=== PATIENT | male | born 1970 | race Two or more races ===

== ENCOUNTER 2020-01-05 06:17 | Inpatient (IN) | payer OTHER ==
--- NOTE | 2020-01-05 07:29 | PDOC ---
Attending Attestation - Resident Resident Name: Jorge Blanca - ED Attending Attestation I have performed the following: I have examined & evaluated the patient, The case was reviewed & discussed with the resident, I agree w/resident's findings & plan, Exceptions are as noted - HPI HPI: 01/05/20 07:39 49YOM h/o EtOH use disorder, history of withdrawal seizures, who drank a whole bottle of whiskey last night and shortly thereafter became concerned because he felt like his blood pressure was high. Elaborates that he felt rapid palpitations which have persisted since that time. Denies having taken his BP measurement during this time. He present alert, oriented, and able to give his full history. Denies additional substance use. Notes he feels like he is trembling and feels generally unwell but otherwise denies focal pain. - Physicial Exam PE: 01/05/20 07:29 GENERAL: well-appearing, A/Ox4, no distress, answers questions appropriately, does speak Yoruba but prefers Uzbek HEENT: PERRLA, EOMI, moist mucous membranes NECK/BACK: no midline ttp, no spinal step-off or deformity, no hematoma, full ROM, neck supple CARDIOVASCULAR: rapid regular rate, no MGR, strong peripheral pulses, capillary refill 3 seconds, extremities wwp, no edema LUNGS/RESPIRATORY: no respiratory distress, CTAB GI/ABDOMEN: symmetric [id number], normoactive BS, soft, no ttp, no midline pulsatile masses : no CVA tenderness MSK/EXTREMITIES: no muscle atrophy, no acute deformity SKIN: warm and dry, no pallor, no jaundice, no rash, no pathologic-appearing bruising, no skin breakdown, no cuts, no lesions NEUROLOGICAL: GCS 15, CN II-XII grossly intact, 5/5 strength proximally and distally, no facial droop, +asterixis, tremulous at rest, +tongue fasciculations - Medical Decision Making 49YOM with h/o heavy EtOH use who p/w stated alcohol withdrawal, also with fever. Initial Vital Signs Temp Pulse Resp BP Pulse Ox 98.8 F 120 H 18 127/95 96 01/05/20 06:28 01/05/20 06:28 01/05/20 06:28 01/05/20 06:28 01/05/20 06:28 Most likely EtOH withdrawal (w/ concern for seizure and DT), less likely hepatic encephalopathy. Possible metabolic derangement as well, possible infection (e.g. PNA or UTI). Provider Orders Category Date Time Status ELECTROCARDIOGRAM [CARD] Stat Cardiology 01/05/20 07:27 Completed Cardiac Monitoring Continuous Care 01/05/20 07:43 Completed EKG needed NOW Care 01/05/20 07:27 Completed Isolation Precautions As directed Care 01/05/20 10:07 Completed CARDIAC PROFILE ([facility]) Stat Lab 01/05/20 07:30 Completed CBC WITH DIFFERENTIAL Stat Lab 01/05/20 07:30 Completed CK INDEX Stat Lab 01/05/20 07:30 Completed CK MB Stat Lab 01/05/20 07:30 Completed COMP METABOLIC PANEL Stat Lab 01/05/20 07:30 Completed COVID-19 Stat Lab 01/05/20 12:00 Completed FREE T4 Stat Lab 01/05/20 07:30 Completed TSH [THYROID STIMULATING HORMONE] Stat Lab 01/05/20 07:30 Completed Chlordiazepoxide [Librium -] Medication 01/05/20 08:09 Discontinued 50 mg .ROUTE .STK-MED ONE Chlordiazepoxide [Librium -] Medication 01/05/20 08:08 Discontinued 50 mg PO ONCE ONE Diazepam Injection [Valium Injection -] Medication 01/05/20 09:54 Discontinued 10 mg .ROUTE .STK-MED ONE Diazepam Injection [Valium Injection -] Medication 01/05/20 09:54 Discontinued 10 mg IVPUSH ONCE ONE Diazepam [Valium -] Medication 01/05/20 09:48 Discontinued 10 mg PO ONCE ONE Folic Acid Injection - 1 mg Medication 01/05/20 07:44 Discontinued Thiamine HCl [Vitamin B1 Injection -] 100 mg Multivit Injection Adult [Infuvite Adult -] 10 ml Sodium Chloride [Normal Saline -] 988.8 ml IVPB ONCE LORazepam [Ativan Injection -] Medication 01/05/20 08:09 Discontinued 2 mg .ROUTE .STK-MED ONE Lactated Ringers Solution Medication 01/05/20 07:44 Discontinued 1,000 ml IV ONCE ONE Lorazepam Injection [Ativan Injection -] Medication 01/05/20 08:08 Discontinued 2 mg IVPUSH ONCE ONE IV Insert NOW Phy Order 01/05/20 07:45 Completed Medications Discontinued Medications Generic Name Dose Route Start Last Admin Trade Name Freq PRN Reason Stop Dose Admin Chlordiazepoxide HCl 50 mg 01/05/20 08:08 01/05/20 08:28 Librium - PO 01/05/20 08:09 50 mg ONCE ONE Administration Chlordiazepoxide HCl Confirm 01/05/20 08:09 Librium - Administered 01/05/20 08:10 Dose 50 mg .ROUTE .STK-MED ONE Chlordiazepoxide HCl 50 mg 01/05/20 18:00 01/07/20 06:24 Librium - PO 50 mg Q6HPO NOHELIA Administration Diazepam 10 mg 01/05/20 09:48 01/05/20 09:55 Valium - PO 01/05/20 09:49 10 mg ONCE ONE Administration Diazepam 10 mg 01/05/20 09:54 01/05/20 09:56 Valium Injection - IVPUSH 01/05/20 09:55 10 mg ONCE ONE Administration Diazepam Confirm 01/05/20 09:54 Valium Injection - Administered 01/05/20 09:55 Dose 10 mg .ROUTE .STK-MED ONE Folic Acid 1 mg 01/05/20 13:30 01/07/20 09:39 Folic Acid - PO 1 mg DAILY NOHELIA Administration Folic Acid Confirm 01/05/20 14:25 Folic Acid - Administered 01/05/20 14:26 Dose 1 mg .ROUTE .STK-MED ONE Heparin Sodium (Porcine) 5,000 unit 01/05/20 22:00 01/07/20 09:39 Heparin - SQ 5,000 unit BID NOHELIA Administration Folic Acid 1 mg/ Thiamine HCl 1,000 mls @ 125 mls/hr 01/05/20 07:44 01/05/20 08:28 100 mg/ Multivitamins/Minerals IVPB 01/05/20 15:43 125 mls/hr 10 ml/ Sodium Chloride ONCE ONE Administration Potassium Chloride/Dextrose/Sod Cl 20 meq in 1,000 mls @ 125 mls/hr 01/05/20 13:30 01/06/20 11:27 D5-1/2ns+20 Meq Kcl - IV 125 mls/hr ASDIR NOHELIA Administration Folic Acid 1 mg/ Thiamine HCl 1,000 mls @ 125 mls/hr 01/06/20 13:30 01/06/20 17:28 100 mg/ Multivitamins/Minerals IVPB 01/06/20 21:29 125 mls/hr 10 ml/ Sodium Chloride ONCE ONE Administration Insulin Aspart 0 vial 01/05/20 16:30 01/05/20 17:27 Novolog Vial Sliding Scale - SQ Not Given ACHS [facility] Protocol Insulin Aspart 1 vial 01/05/20 19:25 01/07/20 06:26 Novolog Vial Sliding Scale - SQ Not Given ACHS [facility] Protocol Lactated Ringer's 1,000 ml 01/05/20 07:44 01/05/20 08:27 Lactated Ringers Solution IV 01/05/20 07:45 1,000 ml ONCE ONE Administration Lactated Ringer's 1,000 ml 01/05/20 10:44 01/05/20 10:48 Lactated Ringers Solution IV 01/05/20 10:45 1,000 ml ONCE ONE Administration Lorazepam 2 mg 01/05/20 08:08 01/05/20 08:28 Ativan Injection - IVPUSH 01/05/20 08:09 2 mg ONCE ONE Administration Lorazepam Confirm 01/05/20 08:09 Ativan Injection - Administered 01/05/20 08:10 Dose 2 mg .ROUTE .STK-MED ONE Multivitamins/Minerals 10 ml 01/05/20 13:30 01/06/20 20:13 Infuvite Adult - IV Not Given DAILY [facility] Patient Own Medication Confirm 01/06/20 15:57 Pt Own Med Drawer Administered 01/06/20 15:58 Dose 1 ea .ROUTE .STK-MED ONE Thiamine HCl 200 mg 01/05/20 13:30 01/06/20 10:19 Vitamin B1 Injection - IVPB 200 mg DAILY NOHELIA Administration Thiamine HCl Confirm 01/05/20 14:24 Vitamin B1 - Administered 01/05/20 14:25 Dose 200 mg .ROUTE .STK-MED ONE Thiamine HCl 100 mg 01/06/20 22:00 01/07/20 09:39 Vitamin B1 - PO 100 mg BID NOHELIA Administration Lab Results WBC 3.3 K/mm3 (4.0-10.0) L 01/05/20 07:30 RBC 3.50 M/mm3 (4.00-5.60) L 01/05/20 07:30 Hgb 12.1 GM/dL (11.7-16.9) 01/05/20 07:30 Hct 35.3 % (35.4-49) L 01/05/20 07:30 MCV 100.8 fl (80-96) H 01/05/20 07:30 MCH 34.6 pg (25.7-33.7) H 01/05/20 07:30 MCHC 34.3 g/dl (32.0-35.9) 01/05/20 07:30 RDW 14.8 % (11.9-15.9) 01/05/20 07:30 Plt Count 190 K/MM3 (134-434) 01/05/20 07:30 MPV 7.0 fl (7.5-11.1) L 01/05/20 07:30 Absolute Neuts (auto) 1.9 K/mm3 (1.5-8.0) 01/05/20 07:30 Neutrophils % 58.3 % (42.8-82.8) 01/05/20 07:30 Lymphocytes % 34.9 % (8-40) 01/05/20 07:30 Monocytes % 6.1 % (3.8-10.2) 01/05/20 07:30 Eosinophils % 0.1 % (0-4.5) 01/05/20 07:30 Basophils % 0.6 % (0-2.0) 01/05/20 07:30 Nucleated RBC % 0 % (0-0) 01/05/20 07:30 Sodium 139 mmol/L (136-145) 01/05/20 07:30 Potassium 3.7 mmol/L (3.5-5.1) 01/05/20 07:30 Chloride 105 mmol/L (98-107) 01/05/20 07:30 Carbon Dioxide 25 mmol/L (21-32) 01/05/20 07:30 Anion Gap 9 MMOL/L (8-16) 01/05/20 07:30 BUN 7.8 mg/dL (7-18) 01/05/20 07:30 Creatinine 0.7 mg/dL (0.55-1.3) 01/05/20 07:30 Est GFR (CKD-EPI)AfAm 126.64 01/05/20 07:30 Est GFR (CKD-EPI)NonAf 109.27 01/05/20 07:30 Random Glucose 122 mg/dL (74-106) H 01/05/20 07:30 Calcium 8.3 mg/dL (8.5-10.1) L 01/05/20 07:30 Total Bilirubin 0.4 mg/dL (0.2-1) 01/05/20 07:30 AST 74 U/L (15-37) H 01/05/20 07:30 ALT 37 U/L (13-61) 01/05/20 07:30 Alkaline Phosphatase 104 U/L (45-117) 01/05/20 07:30 Creatine Kinase 439 U/L (26-308) H 01/05/20 07:30 Creatine Kinase Index 0.3 % (0.0-5.0) 01/05/20 07:30 CK-MB (CK-2) 1.6 ng/mL (0.5-3.6) 01/05/20 07: Troponin I < 0.02 ng/ml (0.00-0.05) 01/05/20 07:30 Total Protein 8.2 g/dl (6.4-8.2) 01/05/20 07:30 Albumin 3.8 g/dl (3.4-5.0) 01/05/20 07:30 TSH 4.03 uIU/ml (0.358-3.74) H 01/05/20 07:30 Free T4 0.65 ng/dl (0.76-1.16) L 01/05/20 07:30 01/05/20 09:40 HR at this time is 108 after Librium and Ativan. Patient remains tremulous and with tongue fasciculations, given Valium Patient continues to have tremors and fasciculations despite medications. There is concern for deterioration to EtOH withdrawal seizure or DT, also concern for patient's fever. He requires close observation and treatment, admission procedures carried out by resident. Heart Score/ECG Review #1 Sinus tachycardia, rate 119, normal axis, nonspecific ST-T changes likely secondary to rate. Discharge - Discharge Information Problems reviewed: Yes Clinical Impression/Diagnosis: Alcohol withdrawal Qualifiers: Complication of substance-induced condition: uncomplicated Qualified Code(s): F10.230 - Alcohol dependence with withdrawal, uncomplicated Condition: Guarded - Admission Yes - Follow up/Referral - Patient Discharge Instructions - Post Discharge Activity
[2020-01-05] MEDS ORDERED: FOLIC ACID INJECTION - 1 MG, THIAMINE HCL 100 MG, MULTIVIT INJECTION ADULT 10 ML in SOD... IVPB ONE (07:44)
[2020-01-05] MEDS ORDERED: LACTATED RINGERS SOLUTION 1000 ML INFUS.BAG IV ONE ×2 (07:44→10:44)
--- NOTE | 2020-01-05 07:47 | PDOC ---
History of Present Illness - General Chief Complaint: Blood Pressure Problem Stated Complaint: BLOOD PRESSURE PROBLEM Time Seen by Provider: 01/05/20 07:17 History Source: Patient Exam Limitations: No Limitations - History of Present Illness Initial Comments: 01/05/20 07:46 49yM w PMHx EtOH abuse presenting w concern for high BP and intermittent palpitations after drinking 1 bottle of whisky last night. Drinks 1 bottle of hard liquor most days, past hx withdrawals w seizures. Denies fever, cough, n/v, chest/ABD pain, urinary/bowel mvmt changes. Past History - Medical History Allergies/Adverse Reactions: Allergies Allergy/AdvReac Type Severity Reaction Status Date / Time No Known Allergies Allergy Verified 01/05/20 06:28 Home Medications: Ambulatory Orders NK [No Known Home Medication] 01/05/20 - Psycho-Social/Smoking History Smoking History: Never smoked Have you smoked in the past 12 months: No Information on smoking cessation initiated: No - Substance Abuse Hx (Audit-C & DAST Scrn) How often the patient has a drink containing alcohol: Never Score: In Men: 4 or > Positive; In Women: 3 or > Positive: 0 Screen Result (Pos requires Nsg. Audit-10AR): Negative In the last yr the pt used illegal drug/Rx for NonMed reason: No Score: Yes response is considered Positive: 0 Screen Result (Positive result requires Nsg. DAST-10): Negative Review of Systems - Review of Systems Constitutional: No: Chills, Fever HEENTM: No: Eye Pain, Nose Pain Respiratory: No: Cough, Shortness of Breath Cardiac (ROS): Yes: Palpitations. No: Chest Pain ABD/GI: No: Constipated, Diarrhea : No: Burning, Dysuria Musculoskeletal: No: Back Pain, Joint Pain Integumentary: No: Bruising, Flushing Neurological: No: Headache, Seizure Psychiatric: No: Anxiety, Depression Endocrine: No: Intolerance to Cold, Intolerance to Heat Hematologic/Lymphatic: No: Anemia, Blood Clots *Physical Exam - Vital Signs Last Vital Signs Temp Pulse Resp BP Pulse Ox 98.8 F 120 H 18 127/95 96 01/05/20 06:28 01/05/20 06:28 01/05/20 06:28 01/05/20 06:28 01/05/20 06:28 - Physical Exam General Appearance: Yes: Nourished, Appropriately Dressed, Mild Distress HEENT: positive: EOMI, BARI, Normal Voice, Hearing Grossly Normal, Other (tongue fasciculations). negative: Scleral Icterus (R), Scleral Icterus (L) Respiratory/Chest: positive: Lungs Clear, Normal Breath Sounds. negative: Chest Tender, Respiratory Distress Cardiovascular: positive: Regular Rhythm, S1, S2, Tachycardia. negative: Edema, Murmur Gastrointestinal/Abdominal: positive: Normal Bowel Sounds, Flat, Soft. negative: Tender, Organomegaly Extremity: positive: Delayed Capillary Refill Integumentary: positive: Normal Color, Dry, Warm Neurologic: positive: Fully Oriented, Alert, Normal Mood/Affect, Normal Response, Responsive ED Treatment Course - LABORATORY CBC & Chemistry Diagram: 01/05/20 07:30 01/05/20 07:30 Medical Decision Making - Medical Decision Making 01/05/20 10:07 EKG - sinus tachycardia, HR 119, QTc 433, no ST changes WBC 3.3, T4 0.65 --- 49yM w PMHx EtOH abuse presenting w concern for high BP and intermittent palpitations after drinking 1 bottle of whisky last night. Likely d/t etoh withdrawal. Also has mild hypothyroidism, free T4 0.65. Given 2L LR, banana bag, 2 ativan, 50 librium, 10 valium. Repeat HR 97 after meds given Admit m/s Annabi for etoh withdrawal in setting of past hx of seizures and concern for progression to delirium tremes Discharge - Discharge Information Problems reviewed: Yes Clinical Impression/Diagnosis: Alcohol withdrawal Qualifiers: Complication of substance-induced condition: uncomplicated Qualified Code(s): F10.230 - Alcohol dependence with withdrawal, uncomplicated Condition: Improved - Follow up/Referral Referrals: Efrain Tolbert MD [Primary Care Provider] - - Patient Discharge Instructions - Post Discharge Activity
[2020-01-05] MEDS ORDERED: chlordiazePOXIDE HCL 25 MG CAPSULE PO ONE (08:08)
[2020-01-05] MEDS ORDERED: LORazepam 2 MG/ML SDV VIAL ONE (08:09)
[2020-01-05] MEDS ORDERED: chlordiazePOXIDE HCL 25 MG CAPSULE ONE (08:09)
[2020-01-05 08:30] LABS: BASO % 0.6 % (0-2.0); EOS % 0.1 % (0-4.5); HEMATOCRIT 35.3 % (35.4-49); HEMOGLOBIN 12.1 GM/dL (11.7-16.9); LYMPH % 34.9 % (8-40); MCH 34.6 pg (25.7-33.7); MCHC 34.3 g/dl (32.0-35.9); MEAN CELL VOLUME 100.8 fl (80-96); MONO % 6.1 % (3.8-10.2); NEUT % 58.3 % (42.8-82.8); PLATELET COUNT 190 K/MM3 (134-434); RDW 14.8 % (11.9-15.9); WHITE BLOOD COUNT 3.3 K/mm3 (4.0-10.0)
[2020-01-05 09:11] LABS: ALBUMIN 3.8 g/dl (3.4-5.0); ALK PHOS 104 U/L (45-117); ANION GAP 9 MMOL/L (8-16); BILIRUBIN,TOTAL 0.4 mg/dL (0.2-1); BLOOD UREA NITROGEN 7.8 mg/dL (7-18); CALCIUM 8.3 mg/dL (8.5-10.1); CHLORIDE 105 mmol/L (98-107); CO2 25 mmol/L (21-32); CREATININE 0.7 mg/dL (0.55-1.3); GLUCOSE,RANDOM 122 mg/dL (74-106); POTASSIUM 3.7 mmol/L (3.5-5.1); SGOT/AST 74 U/L (15-37); SGPT/ALT 37 U/L (13-61); SODIUM 139 mmol/L (136-145); TOT PROT 8.2 g/dl (6.4-8.2)
[2020-01-05] MEDS ORDERED: diazePAM 5 MG TABLET PO ONE (09:48)
[2020-01-05] MEDS ORDERED: diazePAM CARPU-JECT 10 MG/2 ML DISP.SYRIN ONE (09:54)
[2020-01-05] MEDS ORDERED: diazePAM CARPU-JECT 10 MG/2 ML DISP.SYRIN IVPUSH ONE (09:54)
--- NOTE | 2020-01-05 12:32 | EKG ---
Test Reason : Blood Pressure : / mmHG Vent. Rate : 117 BPM Atrial Rate : 117 BPM P-R Int : 148 ms QRS Dur : 090 ms QT Int : 316 ms P-R-T Axes : 023 030 036 degrees QTc Int : 440 ms SINUS TACHYCARDIA NONSPECIFIC T WAVE ABNORMALITY ABNORMAL ECG NO PREVIOUS ECGS AVAILABLE Confirmed by FABRICIO GROVER MD ([id number]) on 01/05/2020 12:31:44 PM Referred By: Confirmed By:FABRICIO GROVER MD
[2020-01-05] MEDS ORDERED: THIAMINE HCL 100 MG TABLET (FP) ONE (14:24)
[2020-01-05] MEDS ORDERED: FOLIC ACID 1 MG TABLET (FP) ONE (14:25)
[2020-01-05] MEDS: FOLIC ACID 1 MG TABLET (FP) PO SCH (14:32)
[2020-01-05] MEDS: THIAMINE HCL 200 MG/2 ML VIAL IVPB SCH (14:32)
[2020-01-05] MEDS: D5-1/2NS+20 MEQ KCL - 20 MEQ/1,000 ML INFUS.BAG IV SCH (15:29)
[2020-01-05] MEDS ORDERED: INSULIN SLIDING SCALE (NOVOLOG) 1 VIAL SQ SCH (16:30)
[2020-01-05] MEDS: chlordiazePOXIDE HCL 25 MG CAPSULE PO SCH ×2 (18:12→23:51)
--- NOTE | 2020-01-05 19:33 | CONSULT ---
Consult Detox [facility] Reason for Current Admission/Consult: Alcohol withdrawal syndrome Referred by:: Nicolas Robertson - History History of Present Illness: 49YOM h/o EtOH use disorder, history of withdrawal seizures, who drank a whole bottle of whiskey last night and shortly thereafter became concerned because he felt like his blood pressure was high. Elaborates that he felt rapid palpitations which have persisted since that time. Denies having taken his BP measurement during this time. He present alert, oriented, and able to give his full history. Denies additional substance use. Notes he feels like he is trembling and feels generally unwell but otherwise denies focal pain. - History Source History Provided By: Medical Record Limitations to Obtaining History: No Limitations - Alcohol/Substance Use Hx Alcohol Use: Yes Hx Substance Use: No Hx Substance Use Treatment: No - Current Drug/Alcohol Use Alcohol Route: Oral Frequency: Daily Amount used: 1 bottle of hard liquor Age of first use: 18 Date of Last Use: 01/04/20 Assessment Plan - Plan Plan: Alcohol Withdrawal Syndrome: Patient has a history of alcohol use. However, it isn't clear that he has been drinking daily and is dependent. Assess patient for amount and duration and if there have been adverse effects of alcohol use; e.g., blackouts, seizures upon withdrawing. If patient is amenable to detox, then he can be referred to [facility] for detox if medically stable and cleared. Continue Ativan and Librium on prn basis. Assess a CIWA overnight. If he is still in withdrawals, then start Librium detox protocol. Please do not hesitate to confer with detox attending distribution district supervisor. Thanks for the consult. Dr. Durbin - Medication Detox Regimen/Protocol: Librium
[2020-01-05 19:40] VITALS: BMI 25.8
[2020-01-05] MEDS: INSULIN SLIDING SCALE (NOVOLOG) 1 VIAL SQ SCH (21:42)
[2020-01-05] MEDS: HEPARIN NA (PORCINE) 5,000 UNITS/ML 1ML VIAL SQ SCH (21:43)
[2020-01-06] MEDS: D5-1/2NS+20 MEQ KCL - 20 MEQ/1,000 ML INFUS.BAG IV SCH ×2 (01:03→11:27)
[2020-01-06] MEDS: INSULIN SLIDING SCALE (NOVOLOG) 1 VIAL SQ SCH ×4 (06:24→21:45)
[2020-01-06] MEDS: chlordiazePOXIDE HCL 25 MG CAPSULE PO SCH ×3 (06:24→17:28)
[2020-01-06 09:39] LABS: BASO % 0.6 % (0-2.0); HEMATOCRIT 33.9 % (35.4-49); HEMOGLOBIN 11.7 GM/dL (11.7-16.9); LYMPH % 41.3 % (8-40); MCH 34.8 pg (25.7-33.7); MCHC 34.6 g/dl (32.0-35.9); MEAN CELL VOLUME 100.5 fl (80-96); MEAN PLT VOLUME 7.5 fl (7.5-11.1); NEUT % 52.1 % (42.8-82.8); PLATELET COUNT 164 K/MM3 (134-434); RBC 3.37 M/mm3 (4.00-5.60); RDW 14.4 % (11.9-15.9); WHITE BLOOD COUNT 3.6 K/mm3 (4.0-10.0)
[2020-01-06 10:16] LABS: POTASSIUM 3.6 mmol/L (3.5-5.1)
[2020-01-06] MEDS: FOLIC ACID 1 MG TABLET (FP) PO SCH (10:19)
[2020-01-06] MEDS: THIAMINE HCL 200 MG/2 ML VIAL IVPB SCH (10:19)
[2020-01-06] MEDS: HEPARIN NA (PORCINE) 5,000 UNITS/ML 1ML VIAL SQ SCH ×2 (10:20→21:44)
[2020-01-06 10:40] LABS: ALBUMIN 3.1 g/dl (3.4-5.0); BILIRUBIN,TOTAL 0.9 mg/dL (0.2-1); CALCIUM 7.9 mg/dL (8.5-10.1); CREATININE 0.7 mg/dL (0.55-1.3); MAGNESIUM 1.6 mg/dL (1.8-2.4); TOT PROT 6.8 g/dl (6.4-8.2)
[2020-01-06 10:49] LABS: BLOOD UREA NITROGEN 2.8 mg/dL (7-18)
--- NOTE | 2020-01-06 12:56 | PN ---
Progress Note, Physician Chief Complaint: EVENTS AND NOTES REVIEWED ASLEEP NO ACUTE CHANGES OVERNIGHT - Current Medication List Current Medications: Active Medications Chlordiazepoxide HCl (Librium -) 50 mg PO Q6HPO [facility] Last Admin: 01/06/20 06:24 Dose: 50 mg Documented by: Folic Acid (Folic Acid -) 1 mg PO DAILY [facility] Last Admin: 01/06/20 10:19 Dose: 1 mg Documented by: Heparin Sodium (Porcine) (Heparin -) 5,000 unit SQ BID [facility] Last Admin: 01/06/20 10:20 Dose: 5,000 unit Documented by: Potassium Chloride/Dextrose/Sod Cl (D5-1/2ns+20 Meq Kcl -) 20 meq in 1,000 mls @ 125 mls/hr IV ASDIR [facility] Last Admin: 01/06/20 11:27 Dose: 125 mls/hr Documented by: Insulin Aspart (Novolog Vial Sliding Scale -) 1 vial SQ ACHS [facility]; Protocol Last Admin: 01/06/20 11:31 Dose: Not Given Documented by: Multivitamins/Minerals (Infuvite Adult -) 10 ml IV DAILY [facility] Thiamine HCl (Vitamin B1 Injection -) 200 mg IVPB DAILY [facility] Last Admin: 01/06/20 10:19 Dose: 200 mg Documented by: - Objective Vital Signs: Vital Signs Temperature 98.3 F 01/06/20 10:44 Pulse Rate 92 H 01/06/20 10:44 Respiratory Rate 16 01/06/20 10:44 Blood Pressure 131/84 01/06/20 10:44 O2 Sat by Pulse Oximetry (%) 98 01/06/20 10:44 Constitutional: Yes: Mild Distress Cardiovascular: Yes: Regular Rate and Rhythm Respiratory: Yes: WNL Genitourinary: Yes: WNL Musculoskeletal: Yes: WNL Edema: No Neurological: Yes: Confusion Labs: CBC, BMP 01/06/20 08:20 01/06/20 08:20 Problem List - Problems (1) Alcohol withdrawal Code(s): F10.239 - ALCOHOL DEPENDENCE WITH WITHDRAWAL, UNSPECIFIED Qualifiers: Complication of substance-induced condition: uncomplicated Qualified Code(s): F10.230 - Alcohol dependence with withdrawal, uncomplicated Assessment/Plan ETOH WITHDRAWEL PROTOCOL IV MVI THIAMINE/FOLIC ACID/BANANA BAG LIBRIUM PROTOCOL DETOX [facility] DVT PROPHYLAXIS
--- NOTE | 2020-01-06 12:58 | HP ---
Admitting History and Physical - Primary Care Physician PCP: Kimberly Dela Cruz - Admission Chief Complaint: ETOH WITHDRAWEL History of Present Illness: 49YOM h/o EtOH use disorder, history of withdrawal seizures, who drank a whole bottle of whiskey last night and shortly thereafter became concerned because he felt like his blood pressure was high. Elaborates that he felt rapid palpitations which have persisted since that time. Denies having taken his BP me asurement during this time. He present alert, oriented, and able to give his full history. Denies additional substance use. Notes he feels like he is trembling and feels generally unwell but otherwise denies focal pain. - Advance Directives Advance Directives: Yes: Health Care Proxy - Smoking History Smoking history: Never smoked Have you smoked in the past 12 months: No - Alcohol/Substance Use Hx Alcohol Use: Yes Home Medications - Allergies Allergies/Adverse Reactions: Allergies Allergy/AdvReac Type Severity Reaction Status Date / Time No Known Allergies Allergy Verified 01/05/20 06:28 - Home Medications Home Medications: Ambulatory Orders NK [No Known Home Medication] 01/05/20 Review of Systems Unable to obtain ROS, reason: SEE PROGRESS NOTE TODAY Physical Examination Vital Signs: Vital Signs Temperature 98.3 F 01/06/20 10:44 Pulse Rate 92 H 01/06/20 10:44 Respiratory Rate 16 01/06/20 10:44 Blood Pressure 131/84 01/06/20 10:44 O2 Sat by Pulse Oximetry (%) 98 01/06/20 10:44 Constitutional: Yes: Mild Distress Cardiovascular: Yes: Regular Rate and Rhythm Respiratory: Yes: WNL Gastrointestinal: Yes: WNL Renal/: Yes: WNL Musculoskeletal: Yes: WNL Neurological: Yes: Confusion Labs: CBC, BMP 01/06/20 08:20 01/06/20 08:20 Problem List - Problems (1) Alcohol withdrawal Code(s): F10.239 - ALCOHOL DEPENDENCE WITH WITHDRAWAL, UNSPECIFIED Qualifiers: Complication of substance-induced condition: uncomplicated Qualified Code(s): F10.230 - Alcohol dependence with withdrawal, uncomplicated Assessment/Plan ETOH WITHDRAWEL PROTOCOL IV MVI THIAMINE/FOLIC ACID/BANANA BAG LIBRIUM PROTOCOL DETOX [facility] DVT PROPHYLAXIS
[2020-01-06] MEDS ORDERED: FOLIC ACID INJECTION - 1 MG, THIAMINE HCL 100 MG, MULTIVIT INJECTION ADULT 10 ML in SOD... IVPB ONE (13:30)
[2020-01-06] MEDS: MULTIVIT INJ. ADULT COMBO WITH VIT K 1 COMBO 10 ML VIAL IV SCH ×2 (14:36→20:13)
[2020-01-06] MEDS ORDERED: PT OWN MED DRAWER 7, Y5N ONE (15:57)
[2020-01-06] MEDS: THIAMINE HCL 100 MG TABLET (FP) PO SCH (21:45)
[2020-01-07] MEDS: chlordiazePOXIDE HCL 25 MG CAPSULE PO SCH ×2 (00:15→06:24)
[2020-01-07] MEDS: INSULIN SLIDING SCALE (NOVOLOG) 1 VIAL SQ SCH (06:26)
[2020-01-07] MEDS: FOLIC ACID 1 MG TABLET (FP) PO SCH (09:39)
[2020-01-07] MEDS: HEPARIN NA (PORCINE) 5,000 UNITS/ML 1ML VIAL SQ SCH (09:39)
[2020-01-07] MEDS: THIAMINE HCL 100 MG TABLET (FP) PO SCH (09:39)
[2020-01-07 09:49] VITALS: BP 137/91; PULSE 79; TEMP 97.7
--- NOTE | 2020-01-07 11:04 | DS ---
Physical Examination Vital Signs: Vital Signs Temperature 97.7 F 01/07/20 09:48 Pulse Rate 79 01/07/20 09:48 Respiratory Rate 18 01/07/20 05:00 Blood Pressure 137/91 01/07/20 09:48 O2 Sat by Pulse Oximetry (%) 99 01/07/20 09:48 Findings/Remarks: WANT TO LEAVE AMA DISCUSSED WITH NURSE AND PATIENT HE WANTS TO LEAVE NOW Labs: CBC, BMP 01/06/20 08:20 01/06/20 08:20 Discharge Summary Problems reviewed: Yes Reason For Visit: ALCOHOL WITHDRWAL SYNDROME Current Active Problems Alcohol withdrawal (Acute) Condition: Improved - Instructions Referrals: Efrain Tolbert MD [Primary Care Provider] - Disposition: AGAINST MEDICAL ADVICE - Home Medications Comprehensive Discharge Medication List: Ambulatory Orders NK [No Known Home Medication] 01/05/20
--- NOTE | 2020-01-10 13:01 | EKG ---
Test Reason : Blood Pressure : / mmHG Vent. Rate : 119 BPM Atrial Rate : 119 BPM P-R Int : 152 ms QRS Dur : 090 ms QT Int : 308 ms P-R-T Axes : 041 035 029 degrees QTc Int : 433 ms SINUS TACHYCARDIA NONSPECIFIC T WAVE ABNORMALITY ABNORMAL ECG WHEN COMPARED WITH ECG OF 05-JAN-2020 06:24, NO SIGNIFICANT CHANGE WAS FOUND Confirmed by MD OQUENDO PENG ([id number]) on 01/10/2020 1:01:05 PM Referred By: Confirmed By:GABBI OQUENDO MD
== END 2020-01-07 11:21 | disposition left against medical advice (07) | DRG 770 ==
LOC: JER 06:17 → JERBED 10:44 → J5S 16:23
PROVIDERS: ADMIT Family Medicine; ATTEND Family Medicine
DX: F10.230 Alcohol dependence with withdrawal, uncomplicated (principal); E03.9 Hypothyroidism, unspecified
CPT/HCPCS: 36415; 80053; 82550; 82553; 82962; 83690; 83735; 84439; 84443; 84484; 85025; 93005; 93010; 99285-25; J1644; U0003

== ENCOUNTER 2020-01-31 22:16 | Inpatient (IN) | payer OTHER ==
[2020-01-31 22:43] VITALS: BMI 24.9
--- NOTE | 2020-01-31 22:52 | HP ---
CIWA Score Nausea/Vomitin-No Nausea/No Vomiting Muscle Tremors: 4-Moderate,w/Arms Extend Anxiety: 4-Mod. Anxious/Guarded Agitation: 4-Moderately Restless Paroxysmal Sweats: No Perspiration Orientation: 1-Uncertain about Date Tacttile Disturbances: 3-Moderate Itch/Numb/Burn (s/p er visit at [facility]. cleared) Auditory Disturbances: 0-None Visual Disturbances: 0-None Headache: 0-None Present CIWA-Ar Total Score: 16 - Admission Criteria OASAS Guidelines: Admission for Medically Managed Detox: Requires at least one of the followin. CIWA greater than 12 2. Seizures within the past 24 hours 3. Delirium tremens within the past 24 hours 4. Hallucinations within the past 24 hours 5. Acute intervention needed for co occurring medical disorder 6. Acute intervention needed for co occurring psychiatric disorder 7. Severe withdrawal that cannot be handled at a lower level of care (continued vomiting, continued diarrhea, abnormal vital signs) requiring intravenous medication and/or fluids 8. Admitting History and Physical - Smoking History Smoking history: Never smoked Have you smoked in the past 12 months: No - Alcohol/Substance Use Hx Alcohol Use: Yes Admission ROS [facility] Chief Complaint: SEEKING DETOX FOR ALCOHOLISM. PRESENTS WITH C/O WITHDRAWAL SX'S Allergies/Adverse Reactions: Allergies Allergy/AdvReac Type Severity Reaction Status Date / Time No Known Allergies Allergy Verified 01/31/20 16:39 History of Present Illness: HERE FOR ALCOHOLISM. REFERRED BY [facility] AFTER PRESENTING THERE WITH C/O R HAND NUMBNESS. HE WAS MEDICALLY CLEARED AND REFERRED. THIS IS HIS FIRST VISIT HERE BUT WAS ADMITTED FOR DETOX ON 01/05/20 TO 01/07/20 AT [facility] REPORTING RELAPSING RIGHT AFTER DC. 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 + BLACK OUTS AND WITHDRAWAL SEIZURES. DENIES ANY OTHER ILLICIT SUBSTANCE OF ABUSE. HE ALSO DENIES ANY HX/O CLEAN TIME. LIVES ALONE, UNEMPLOYED. DENIES LEGALS, Continuation of Care Patient Name: ROSY VEGA Date of : 1970 Patient Status: Emergency Emergency Provider: Jacey Mclean Date: 01/31/20 21:02 Initialization Date: 01/31/20 21:02 *Physical Exam - Vital Signs Last Vital Signs Temp Pulse Resp BP Pulse Ox 98.1 F 94 H 20 130/87 97 01/31/20 19:49 01/31/20 19:49 01/31/20 19:49 01/31/20 19:49 01/31/20 19:49 ED Treatment Course - LABORATORY CBC & Chemistry Diagram: 01/31/20 17:40 01/31/20 17:40 - ADDITIONAL ORDERS Additional order review: Laboratory Results 01/31/20 01/31/20 17:40 17:35 Sodium 142 Potassium 3.8 Chloride 106 Carbon Dioxide 24 Anion Gap 11 BUN 4.9 L Creatinine 0.6 Est GFR (CKD-EPI)AfAm 134.92 Est GFR (CKD-EPI)NonAf 116.41 POC Glucometer 100 Random Glucose 107 H Calcium 8.1 L Magnesium 1.6 L Total Bilirubin 0.2 AST 75 H ALT 64 H Alkaline Phosphatase 84 Total Protein 7.7 Albumin 3.6 Alcohol, Quantitative 323.0 H 01/31/20 01/31/20 17:40 17:35 RBC 3.31 L MCV 100.9 H MCHC 34.0 RDW 14.7 MPV 7.3 L POC Glucometer 100 - Medications Given in the ED: ED Medications Discontinued Medications Generic Name Dose Route Start Last Admin Trade Name Papo PRN Reason Stop Dose Admin Folic Acid 1 mg 01/31/20 17:50 01/31/20 18:01 Folic Acid - PO 01/31/20 17:51 1 mg ONCE ONE Administration Lactated Ringer's 1,000 ml in 1,000 mls @ 1,000 mls/hr 01/31/20 17:32 01/31/20 17:43 Lactated Ringers Solution IV 01/31/20 18:31 1,000 mls/hr ONCE STA Administration Magnesium Sulfate 2 gm 01/31/20 19:12 01/31/20 20:47 Magnesium Sulfate IVPB 01/31/20 19:13 Not Given ONCE ONE Magnesium Sulfate 2 gm 01/31/20 20:45 01/31/20 20:47 Magnesium Sulf 2 G/50 Ml Bag IVPB 01/31/20 20:46 2 gm ONCE ONE Administration Multivitamins/Minerals/Vitamin C 1 tab 01/31/20 17:50 01/31/20 18:01 Tab-A-Vit - PO 01/31/20 17:51 1 tab ONCE ONE Administration Medical Decision Making - Medical Decision Making 01/31/20 21:[address] Santamaria 49 yo male with PMH of alcoholism and withdrawal seizures presents with right hand numbness and tingling Signed out to followup CT cspine 01/31/20 21:03 Patient clinically sober. HR improved to 80s-90s CT cspine with chronic fracture fragment of C2 vertebral body Family at bedside and patient and brother requesting tx to Detox facility for detox and rehab Called Detox and beds are available. Will DC Medical Decision Making 01/31/20 19:14 a/p: 49yo male with hx of etoh abuse with R hand numbness since 4am today -no neural findings -pt states he drank yesterday and again this AM -states he drank whiskey and beers last night, and then admits to drinking 2 beers today -muscle strength intact -sensation intact -poor coordination with rapid hand motions b/l -normal finger to nose and heel oneil -denies falls, but has fallen in the past when drinking -will send labs, ekg, cxr, head ct -will monitor and reassess 01/31/20 19:18 mag low will replace 01/31/20 19:20 chronic c2 fx on ct old R parietal skin suture line seen 01/31/20 21:21 pt feeling better no staple visualized on physical exam pt with etoh >300 brother at the bedside neuro intact and improving coordination pt agrees to go to detox and stop drinking resident discussed the case with detox who accepts pt to detox Heart Score/ECG Review - ECG Intrepretation Comment:: 01/31/20 19:13 sinus at 97, nl axis, nl interval, no acute st/t wave findings Discharge - Discharge Information Problems reviewed: Yes Clinical Impression/Diagnosis: Alcohol intoxication, Numbness and tingling in right hand, Hypomagnesemia Condition: Stable Disposition: HOME Discharge - Discharge Information Problems reviewed: Yes Clinical Impression/Diagnosis: Alcohol intoxication, Numbness and tingling in right hand Condition: Stable Disposition: HOME Exam Limitations: Language Barrier (POLISH SPEAKING) - Ebola screening Have you traveled outside of the country in the last 21 days: No Have you had contact with anyone from an Ebola affected area: No Have you been sick,other than usual withdrawal symptoms: No Do you have a fever: No - Review of Systems Constitutional: No Symptoms Reported EENT: reports: Dental Problems (MISSING TEETH), Other (READING GLASSES) Respiratory: reports: No Symptoms reported Cardiac: reports: No Symptoms Reported GI: reports: Poor Fluid Intake : reports: No Symptoms Reported Musculoskeletal: reports: Back Pain (CHRONIC) Integumentary: reports: Dryness, Pruritus Neuro: reports: Numbness, Seizure, Tremors Endocrine: reports: No Symptoms Reported Hematology: reports: No Symptoms Reported Psychiatric: reports: Orientated x3, Anxious Other Systems: Reviewed and Negative Patient History - Patient Medical History Hx Anemia: No Hx Asthma: No Hx Chronic Obstructive Pulmonary Disease (COPD): No Hx Cancer: No Hx Cardiac Disorders: No Hx Congestive Heart Failure: No Hx Hypertension: Yes (NO MEDS) Hx Hypercholesterolemia: No Hx Pacemaker: No HX Cerebrovascular Accident: No Hx Seizures: No Hx Dementia: No Hx Diabetes: No Hx Gastrointestinal Disorders: No Hx Liver Disease: No Hx Genitourinary Disorders: No Hx Sexually Transmitted Disorders: No Hx Renal Disease (ESRD): No Hx Thyroid Disease: No Hx Human Immunodeficiency Virus (HIV): No Hx Hepatitis C: No Hx Depression: No Hx Suicide Attempt: No Hx Bipolar Disorder: No Hx Schizophrenia: No Other Medical History: DENIES - Patient Surgical History Past Surgical History: No - PPD History Previous Implant?: Yes Documented Results: Negative w/o proof Implanted On Prior [facility] Admission?: No PPD to be Administered?: Yes - Smoking Cessation Smoking history: Never smoked Have you smoked in the past 12 months: No Cigars Per Day: 0 Hx Chewing Tobacco Use: No Initiated information on smoking cessation: No - Substance & Tx. History Hx Alcohol Use: Yes Hx Substance Use: Yes Substance Use Type: Alcohol Hx Substance Use Treatment: Yes (LENO) - Substances abused Alcohol Other (specify): WHISKEY/ BEER Substance route: Oral Frequency: Daily Amount used: 1.5 PINT/ 2-12OZ CANS Age of first use: 23 Date of last use: 01/31/20 Admission Physical Exam BHS - Vital Signs Vital Signs: Vital Signs - 24 hr 01/31/20 22:42 Temperature 98.3 F Pulse Rate 101 H Respiratory 18 Rate Blood Pressure 147/96 - Physical General Appearance: Yes: Moderate Distress, Alcohol on Breath, Tremorous, Anxious HEENTM: Yes: EOMI, Normocephalic, Normal Voice, BARI, Pharynx Normal, Other (TONGUE FASICULATIONS) Respiratory: Yes: Chest Non-Tender, Lungs Clear, Normal Breath Sounds, No Respiratory Distress, No Accessory Muscle Use Neck: Yes: No masses,lesions,Nodules, Supple, Trachea in good position Breast: Yes: Breasts Symetrical Cardiology: Yes: Regular Rhythm, S1, S2, Tachycardia Abdominal: Yes: Normal Bowel Sounds, Non Tender, Soft Genitourinary: Yes: Within Normal Limits Back: Yes: Normal Inspection Musculoskeletal: Yes: full range of Motion, Gait Steady Extremities: Yes: Normal Capillary Refill, Normal Range of Motion, Non-Tender, Tremors Neurological: Yes: Fully Oriented, Alert, Motor Strength 5/5 (ALL EXTREMITIES), Depressed Affect Integumentary: Yes: Dry, Warm, Other (LICHENIFICATION OF RIGHT LOWER EXTREMITIE FROM ITCHING/SCRATCHING DRY SKIN/RASH) Lymphatic: Yes: Within Normal Limits - Diagnostic (1) Alcohol dependence with withdrawal, uncomplicated Current Visit: Yes Status: Acute (2) HTN (hypertension) Current Visit: Yes Status: Chronic Qualifiers: Hypertension type: unspecified Qualified Code(s): I10 - Essential (primary) hypertension (3) Numbness and tingling in right hand Current Visit: Yes Status: Chronic (4) Malay speaking patient Current Visit: Yes Status: Chronic (5) At risk for dehydration due to poor fluid intake Current Visit: Yes Status: Acute Cleared for Admission [facility] - Detox or Rehab [facility] Level of Care: Medically Managed Detox Regimen/Protocol: Librium Claeared for Rehab Admission: No Breathalyzer - Breathalyzer Breathalyzer: 0.153 Urine Drug Screen - Test Device Lot number: [id number] Expiration date: 09/12/21 - Control Is test valid?: Yes - Results Drug screen NEGATIVE: No Urine drug screen results: BZO-Benzodiazepines Inpatient Rehab Admission - Rehab Decision to Admit Inpatient rehab admission?: No
[2020-01-31] MEDS ORDERED: P-EPHED 60MG/TRIPROLIDI 2.5MG TABLET PO PRN (23:15)
[2020-01-31] MEDS ORDERED: METHOCARBAMOL 500 MG TABLET PO PRN (23:15)
[2020-01-31] MEDS ORDERED: guaiFENesin 200 MG/10 ML 10 ML UNIT-DOSE CUPS PO PRN (23:15)
[2020-01-31] MEDS ORDERED: IBUPROFEN 400 MG TABLET (FP) PO PRN (23:15)
[2020-01-31] MEDS ORDERED: hydrOXYzine PAMOATE 25 MG CAPSULE (FP) PO PRN (23:15)
[2020-01-31] MEDS ORDERED: chlordiazePOXIDE HCL 25 MG CAPSULE PO PRN (23:15)
[2020-01-31] MEDS ORDERED: DICYCLOMINE HCL 10 MG CAPSULE PO PRN (23:15)
[2020-01-31] MEDS ORDERED: MAG HYDROX/AL HYDROX/SIMETH 30 ML UNIT-DOSE CUP PO PRN (23:15)
[2020-01-31] MEDS ORDERED: ACETAMINOPHEN 325 MG TABLET (FP) PO PRN ×2 (23:15)
[2020-01-31] MEDS ORDERED: MAGNESIUM HYDROX 2400MG/30ML ORAL SUSPENSION 30 ML CUP PO PRN (23:15)
[2020-01-31] MEDS ORDERED: MAGNESIUM CITRATE 300 ML BOTTLE PO PRN (23:15)
[2020-01-31] MEDS ORDERED: ONDANSETRON *ODT* 4 MG TABLET SL ONE (23:15)
[2020-01-31] MEDS ORDERED: BISMUTH SUBSALICYLATE 524 MG/30 ML UD PO PRN (23:15)
[2020-01-31] MEDS ORDERED: MENTHOL/PHENOL 1 EACH UD MM PRN (23:15)
[2020-02-01] MEDS: chlordiazePOXIDE HCL 25 MG CAPSULE PO SCH ×5 (00:41→22:14)
[2020-02-01] MEDS: HYDROCORTISONE 1% TOPICAL CREAM 30 GM TUBE TP SCH ×3 (00:42→22:14)
--- NOTE | 2020-02-01 09:50 | CONSULT ---
[facility] Psychiatric Consult - Data Date of interview: 02/01/20 Admission source: [facility] Identifying data: Patient is a 49 year old single Jeff male, father of three, unemployed, domiciled, and is not currently receiving financial assistance. This is patient's first admission to detox at [facility]. Patient admitted to for alcohol dependence. Substance Abuse History: - Smoking Cessation. Smoking history: Never smoked. Have you smoked in the past 12 months: No. Cigars Per Day: 0. Hx Chewing Tobacco Use: No. Initiated information on smoking cessation: No. - Substance & Tx. History. Hx Alcohol Use: Yes. Hx Substance Use: Yes. Substance Use Type: Alcohol. Hx Substance Use Treatment: Yes (LENO). - Substances abused. Alcohol. Other (specify): WHISKEY/ BEER. Substance route: Oral. Frequency: Daily. Amount used: 1.5 PINT/ 2-12OZ CANS. Age of first use: 23. Date of last use: 01/31/20 Psychiatric History: Patient denies history of psychiatric hospitalizations, and suicide attempt. Mr. Gaming reports seeing a psychiatrist two years while in a outpatient rehab program in [place]. Patient is unable to recall medications prescribed. Mr. Harvey is not currently prescribed psychotropic medications. At present reports feeling sad. Physical/Sexual Abuse/Trauma History: denies. 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 Detoxification in progress. Observation.
[2020-02-01] MEDS: PRENATAL VITAMINS W/ FOLIC ACID TABLET (FP) PO SCH (10:13)
--- NOTE | 2020-02-01 11:26 | PN ---
S CIWA - CIWA Score Nausea/Vomitin-Mild Nausea/No Vomiting Muscle Tremors: 2 Anxiety: 3 Agitation: 2 Paroxysmal Sweats: No Perspiration Orientation: 0-Oriented Tacttile Disturbances: 0-None Auditory Disturbances: 0-None Visual Disturbances: 2-Mild Sensitivity Headache: 1-Very Mild CIWA-Ar Total Score: 11 S Progress Note (SOAP) Subjective: 49 years old male was admitted on 01/31/20 for alcohol withdrawal sx management treating with librium detox regiment ate breakfast in room social with peers in day room and hallway discussing alcohol related neurological insults Objective: 02/01/20 11:27 Vital Signs - 24 hr 01/31/20 01/31/20 02/01/20 22:42 23:38 00:43 Temperature 98.3 F 98.3 F 98.1 F Pulse Rate 101 H 101 H 106 H Respiratory 18 18 18 Rate Blood Pressure 147/96 147/96 146/91 O2 Sat by Pulse 97 Oximetry (%) 02/01/20 02/01/20 06:44 09:12 Temperature 97.5 F L 96.8 F L Pulse Rate 97 H 64 Respiratory 18 18 Rate Blood Pressure 130/85 111/72 O2 Sat by Pulse 99 99 Oximetry (%) 02/01/20 11:27 lab pending 02/01/20 11:29 clonidine 0.1 mg po prn Assessment: 02/01/20 11:29 alcohol withdrawal Plan: librium regiment
[2020-02-01] MEDS ORDERED: cloNIDine HCL 0.1 MG TABLET PO PRN (11:28)
[2020-02-01] MEDS: MELATONIN 5 MG TABLETS PO SCH (22:14)
[2020-02-01] MEDS: THIAMINE HCL 100 MG TABLET (FP) PO SCH (22:14)
[2020-02-02] MEDS: chlordiazePOXIDE HCL 25 MG CAPSULE PO SCH ×4 (05:32→22:09)
[2020-02-02] MEDS: HYDROCORTISONE 1% TOPICAL CREAM 30 GM TUBE TP SCH ×2 (10:35→22:10)
[2020-02-02] MEDS: PRENATAL VITAMINS W/ FOLIC ACID TABLET (FP) PO SCH (10:35)
--- NOTE | 2020-02-02 10:52 | PN ---
S CIWA - CIWA Score Nausea/Vomitin-No Nausea/No Vomiting Muscle Tremors: 2 Anxiety: 2 Agitation: 1-Slight > Activity Paroxysmal Sweats: 3 Orientation: 0-Oriented Tacttile Disturbances: 0-None Auditory Disturbances: 0-None Visual Disturbances: 0-None Headache: 1-Very Mild CIWA-Ar Total Score: 9 BHS Progress Note (SOAP) Subjective: c/o sweats, headache, anxiety, and shakes. Objective: 02/02/20 10:50 Vital Signs 02/02/20 02/02/20 06:26 08:40 Temperature 98.1 F 97.1 F L Pulse Rate 57 L 64 Respiratory 16 18 Rate Blood Pressure 110/82 127/77 O2 Sat by Pulse 100 100 Oximetry (%) Laboratory Last Values Syphilis Serology Non-reactive (NONREACTIVE) 02/01/20 07:35 COVID-19 ([facility]IRI) Not detected (Not Detected) 01/31/20 23:45 HIV Ag/Ab Combo Qual Negative (NEGATIVE) 02/01/20 07:35 Assessment: 02/02/20 10:51 AOX3, in no acute respiratory distress. Full ROM, ambulating in the unit. Withdrawal symptoms. Plan: continue detox.
[2020-02-02] MEDS: THIAMINE HCL 100 MG TABLET (FP) PO SCH (22:09)
[2020-02-02] MEDS: MELATONIN 5 MG TABLETS PO SCH (22:09)
[2020-02-03] MEDS ORDERED: chlordiazePOXIDE HCL 10 MG CAPSULE PO PRN
[2020-02-03] MEDS: chlordiazePOXIDE HCL 10 MG CAPSULE PO SCH ×4 (05:59→22:26)
[2020-02-03] MEDS: HYDROCORTISONE 1% TOPICAL CREAM 30 GM TUBE TP SCH ×2 (10:22→22:25)
[2020-02-03] MEDS: PRENATAL VITAMINS W/ FOLIC ACID TABLET (FP) PO SCH (10:22)
--- NOTE | 2020-02-03 10:26 | PN ---
[facility]HS CIWA - CIWA Score Nausea/Vomitin-No Nausea/No Vomiting Muscle Tremors: None Anxiety: 2 Agitation: 0-Normal Activity Paroxysmal Sweats: 2 Orientation: 0-Oriented Tacttile Disturbances: 0-None Auditory Disturbances: 0-None Visual Disturbances: 0-None Headache: 2-Mild CIWA-Ar Total Score: 6 BHS Progress Note (SOAP) Subjective: c/o sweats, anxiety, and headache. Objective: 02/03/20 10:25 Vital Signs 02/03/20 02/03/20 05:45 08:54 Temperature 97.2 F L 97.1 F L Pulse Rate 92 H 69 Respiratory 18 18 Rate Blood Pressure 114/84 118/72 O2 Sat by Pulse 98 Oximetry (%) Assessment: 02/03/20 10:26 AOX3, in no acute respiratory distress. Full ROM, ambulating in the unit. Withdrawal symptoms. Plan: continue detox.
[2020-02-03] MEDS: THIAMINE HCL 100 MG TABLET (FP) PO SCH (22:25)
[2020-02-03] MEDS: MELATONIN 5 MG TABLETS PO SCH (22:26)
[2020-02-04] MEDS: chlordiazePOXIDE HCL 10 MG CAPSULE PO SCH ×2 (06:21→17:54)
[2020-02-04] MEDS: HYDROCORTISONE 1% TOPICAL CREAM 30 GM TUBE TP SCH ×2 (09:51→22:35)
[2020-02-04] MEDS: PRENATAL VITAMINS W/ FOLIC ACID TABLET (FP) PO SCH (09:51)
--- NOTE | 2020-02-04 12:11 | PN ---
[facility] CIWA - CIWA Score Nausea/Vomitin-No Nausea/No Vomiting Muscle Tremors: 1-None Visible, but [place] Anxiety: 1-Mildly Anxious Agitation: 0-Normal Activity Paroxysmal Sweats: No Perspiration Orientation: 0-Oriented Tacttile Disturbances: 0-None Auditory Disturbances: 0-None Visual Disturbances: 1-Very Mild Sensitivity Headache: 0-None Present CIWA-Ar Total Score: 3 BHS Progress Note (SOAP) Subjective: 49 years old male was admitted on 01/31/20 for alcohol withdrawal sx management treating with librium detox regiment feels better today sitting on the edge of the bed eating breakfast and lunch mr hughes prefers to go to [facility] for alcohol abuse treatment Objective: 02/04/20 12:16 Vital Signs - 24 hr 02/03/20 02/03/20 02/03/20 12:44 16:18 20:42 Temperature 98.6 F 97.1 F L 97.7 F Pulse Rate 96 H 86 98 H Respiratory 18 18 18 Rate Blood Pressure 113/72 115/84 128/89 O2 Sat by Pulse 99 100 Oximetry (%) 02/04/20 02/04/20 06:12 08:40 Temperature 97.5 F L 97.1 F L Pulse Rate 88 83 Respiratory 18 18 Rate Blood Pressure 109/82 122/83 O2 Sat by Pulse 98 Oximetry (%) Laboratory Tests 01/31/20 02/01/20 02/01/20 23:45 07:35 07:35 Syphilis Serology Non-reactive COVID-19 ([facility]IRI) Not detected HIV Ag/Ab Combo Qual Negative 02/04/20 12:17 mr hughes was brought to ER for arm numbness with alcohol intoxicated transferred to [facility] for alcohol withdrawal detox sitting on the edge of the bed eating breakfast and lunch in room Assessment: 02/04/20 12:19 alcohol withdrawal Plan: librium regiment
[2020-02-04 18:16] LABS: PH,URINE 7.5 (5.0-8.0); URINE APPEARANCE CLEAR; URINE BILIRUBIN NEGATIVE (NEGATIVE); URINE COLOR YELLOW; URINE GLUCOSE (UA) NEGATIVE (NEGATIVE); URINE KETONE NEGATIVE (NEGATIVE); URINE LEUK ESTERASE NEGATIVE (NEGATIVE); URINE NITRITE NEGATIVE (NEGATIVE); URINE PROTEIN NEGATIVE (NEGATIVE)
[2020-02-04] MEDS: THIAMINE HCL 100 MG TABLET (FP) PO SCH (22:34)
[2020-02-04] MEDS: MELATONIN 5 MG TABLETS PO SCH (22:34)
[2020-02-05] MEDS ORDERED: chlordiazePOXIDE HCL 10 MG CAPSULE PO ONE (05:00)
[2020-02-05] MEDS: HYDROCORTISONE 1% TOPICAL CREAM 30 GM TUBE TP SCH (10:13)
[2020-02-05] MEDS: PRENATAL VITAMINS W/ FOLIC ACID TABLET (FP) PO SCH (10:13)
--- NOTE | 2020-02-05 10:43 | DS ---
[facility] Detox Discharge Summary Admission Date: 01/31/20 Discharge Date: 02/05/20 - History Present History: Alcohol Dependence Additional Comments: 49 years old male was admitted on 01/31/20 for alcohol withdrawal sx management treated with librium detox regiment seen by psychiatrist no medical intervention mr hughes was sent to ER by EMS for alcohol intoxication transferred to [facility] for alcohol withdrawal management mr hughes has completed the librium regiment and is tolerated well General Appearance: Yes: no Distress, less Tremorous, mild Anxious HEENTM: Yes: EOMI, Normocephalic, Normal Voice, BARI, Pharynx Normal, Other (TONGUE FASICULATIONS) Respiratory: Yes: Chest Non-Tender, Lungs Clear, Normal Breath Sounds, No Respiratory Distress, No Accessory Muscle Use Neck: Yes: No masses,lesions,Nodules, Supple, Trachea in good position Breast: Yes: Breasts Symetrical Cardiology: Yes: Regular Rhythm, S1, S2, Tachycardia Abdominal: Yes: Normal Bowel Sounds, Non Tender, Soft Genitourinary: Yes: Within Normal Limits Back: Yes: Normal Inspection Musculoskeletal: Yes: full range of Motion, Gait Steady Extremities: Yes: Normal Capillary Refill, Normal Range of Motion, Non-Tender, Tremors Neurological: Yes: Fully Oriented, Alert, Motor Strength 5/5 (ALL EXTREMITIES), appropriate Affect Integumentary: Yes: Dry, Warm, Other (LICHENIFICATION OF RIGHT LOWER EXTREMITIE FROM ITCHING/SCRATCHING DRY SKIN/RASH) Lymphatic: Yes: Within Normal Limits Pertinent Past History: time for discharge 34 minutes - Physical Exam Results Vital Signs: Vital Signs Temperature 97.1 F L 02/05/20 08:36 Pulse Rate 73 02/05/20 08:36 Respiratory Rate 18 02/05/20 08:36 Blood Pressure 104/67 02/05/20 08:36 O2 Sat by Pulse Oximetry (%) 99 02/05/20 08:36 Pertinent Admission Physical Exam Findings: alcohol withdrawal Laboratory Tests 01/31/20 02/01/20 02/01/20 23:45 07:35 07:35 POC Glucometer Urine Color Urine Appearance Urine pH Ur Specific [place] Urine Protein Urine Glucose (UA) Urine Ketones Urine Blood Urine Nitrite Urine Bilirubin Urine Urobilinogen Ur Leukocyte Esterase Syphilis Serology Non-reactive COVID-19 ([facility]IRI) Not detected HIV Ag/Ab Combo Qual Negative 02/04/20 02/04/20 14:40 23:16 POC Glucometer 227 Urine Color Yellow Urine Appearance Clear Urine pH 7.5 Ur Specific [place] 1.017 Urine Protein Negative Urine Glucose (UA) Negative Urine Ketones Negative Urine Blood Negative Urine Nitrite Negative Urine Bilirubin Negative Urine Urobilinogen 1.0 Ur Leukocyte Esterase Negative Syphilis Serology COVID-19 (MIRI) HIV Ag/Ab Combo Qual lab noted - Treatment Hospital Course: Detox Protocol Followed, Detoxed Safely, Responded well, Discharged Condition Good, Rehab Referral Accepted Patient has Accepted a Rehab Referral to: [facility] - Medication Discharge Medications: Ambulatory Orders NK [No Known Home Medication] 01/05/20 - AMA Did Patient Leave Against Medical Advice: No CIWA Score - CIWA Score Nausea/Vomitin-No Nausea/No Vomiting Muscle Tremors: 1-None Visible, but [place] Anxiety: 0-No Anxiety, at Ease Agitation: 0-Normal Activity Paroxysmal Sweats: No Perspiration Orientation: 0-Oriented Tacttile Disturbances: 0-None Auditory Disturbances: 0-None Visual Disturbances: 0-None Headache: 0-None Present CIWA-Ar Total Score: 1
[2020-02-05 12:55] VITALS: BP 103/65; PULSE 74; TEMP 96.2
== END 2020-02-05 13:02 | disposition other institution (70) | DRG 775 ==
LOC: YASAS 22:16 → Y3N 23:16
PROVIDERS: ADMIT Allergy & Immunology; ATTEND Allergy & Immunology
PROC: HZ2ZZZZ Detoxification Services for Substance Abuse Treatment (ICD-10-PCS; principal; 2020-01-31)
DX: F10.230 Alcohol dependence with withdrawal, uncomplicated (principal); F10.24 Alcohol dependence with alcohol-induced mood disorder; I10 Essential (primary) hypertension; G40.509 Epileptic seizures related to external causes, not intractable, without status epilepticus; R20.0 Anesthesia of skin; R63.8 Other symptoms and signs concerning food and fluid intake; Z56.0 Unemployment, unspecified
CPT/HCPCS: 36415; 81003; 82962; 86780; 87389; U0003